=== PATIENT | female | born 1965 | race Two or more races ===

== ENCOUNTER 2023-08-06 14:38 | Emergency (ER) | payer OTHER, SELFPAY ==
[2023-08-06 14:44] VITALS: BP 137/88
--- NOTE | 2023-08-06 15:22 | ED.GENMED ---
History of Present Illness
General
Chief Complaint: Eye Problems
Source: patient
Time Seen by Provider: 08/06/23 15:13
Travel History
Have you had any contact with someone who has COVID-19?: No
Do you have any symptoms of coronavirus? Fever > 100 degrees, chills, cough, shortness of breath, sore throat, loss of taste or smell, muscle aches, or headache?: No
History of Present Illness
History of Present Illness:
57-year-old female presenting to the emergency department for evaluation of a left upper eyelid stye has been present for about 2 weeks. Patient was started on warm compresses and antibiotic ointment but has not had any relief. She notes that over
the last 5 days her stye seems to have gotten bigger. She notes some mild discomfort associated with it. Denies any visual changes or discharge from the left eye. She has no other concerns presently.
Past History
Past History
ED Past Medical History: None
ED Past Surgical History: Tonsilectomy
Social History
Tobacco: Non-smoker
Alcohol: None
Drug: None
Personal: Single
Living: alone
Employment: Employed (teacher)
Review of Systems
Review of Systems
All Other Systems: ROS reviewed and negative except as documented in HPI and ROS
Phy Exam
Physical Exam
Physical Exam:
GENERAL: Alert , in no apparent distress
EYE: conjunctiva clear, moderate to large sized stye to the left upper eyelid. Mildly tender. There is no surrounding periorbital erythema, edema or tenderness. Extraocular movements are intact. Pupils 3 mm bilateral
Head: Normocephalic atraumatic
NECK: Supple,
ENT: mmm.
LUNGS: no acute respiratory distress
NEUROLOGICAL: Alert and oriented
SKIN: Warm and dry, skin intact.
MUSCULOSKELETAL: well perfused.
PSYCH: Normal and appropriate interaction.
Scores
Heart Failure Risk
Heart Failure Risk Score: Not Applicable
Heart Score for Chest Pain Patients
STEMI patient?: Not applicable
Withdrawal Assessment of Alcohol
Withdrawal Assessment Completed?: Not applicable
Course
Vital Signs
Initial and Last Documented VS:
Initial Vital Signs
Temp Pulse Resp BP Pulse Ox
98.0 F 59 18 137/88 97
08/06/23 14:44 08/06/23 14:44 08/06/23 14:44 08/06/23 14:44 08/06/23 14:44
Last Documented Vital Signs
Temp Pulse Resp BP Pulse Ox
98.0 F 59 18 137/88 97
08/06/23 14:44 08/06/23 14:44 08/06/23 14:44 08/06/23 14:44 08/06/23 14:44
MDM/Problems Addressed
Differential Diagnosis Includes:
Stye, chalazion, conjunctivitis, cellulitis
MDM/Problems Addressed:
57-year-old female present emergency department for evaluation of the left eye stye x 2 weeks. Attempted cool compresses as well as antibiotic ointment but without any relief. Explained to patient that unfortunately unable to provide with any
further care here in the emergency department as patient will need outpatient follow-up with ophthalmology as she may need to have stye surgically removed. I advised continued warm compresses. Discussed with patient that antibiotic was unlikely to
cause any significant effect in terms of treatment of the stye. Will provide with information for close outpatient follow-up with ophthalmology
*Pulse Oximetry
Patient hypoxic: no
*Critical Care Note
Total Time (30-74mins, 75-104mins- exclusive of procedures): Not Applicable
Patient Management
Discussion with other providers: [employer]
Escalation/DeEscalation of care consider admission/obs:
I provided ophthalmology with patient's information to help expedite outpatient follow-up.
ED Attending Note
-
Portions of this chart may have been created with voice recognition software.� Occasional wrong word or��sound alike� substitutions may have occurred due to the inherent limitations of voice recognition software.
Discharge Plan
Departure
Patient Disposition: Home (Routine Discharge)
Date of Disposition: 08/06/23
Time of Disposition: 15:23
Patient with high blood pressure during this ER visit?: No
Discharge Problem:
Hordeolum internum left upper eyelid
Instructions: Stye (hordeolum)
Referrals:
Lalito Velasquez MD [Active] -
(Call for appointment
)
Interventions
Interventions:
*Risk Screen - Suicide Last Done: 08/06/23 15:31
*General Assessment Last Done: 08/06/23 14:44
*Neglect/Abuse Screening Last Done: 08/06/23 15:31
ED- Fall Risk Assessment Last Done: 08/06/23 15:32
*ED COVID-19 Vaccine History Last Done: 08/06/23 14:44
*Nursing Disposition Last Done: 08/06/23 15:38
[2023-08-06 15:30] VITALS: BMI 31.7
[2023-08-06 15:36] VITALS: BP 125/79
== END 2023-08-06 15:38 | disposition home or self-care (01) ==
LOC: EMR 14:38
PROVIDERS: EMERGENCY PHYSICIAN Emergency Medicine; FAMILY PHYSICIAN Nurse Practitioner Adult Health
DX: H00.024 Hordeolum internum left upper eyelid (principal)
CPT/HCPCS: 99282

== ENCOUNTER → 2023-08-18 16:43 | Outpatient (REF) | payer OTHER, SELFPAY | LOC: WDC 16:43 | PROVIDERS: ATTENDING PHYSICIAN Nurse Practitioner Adult Health | DX: Z12.31 Encounter for screening mammogram for malignant neoplasm of breast (principal) | CPT/HCPCS: 77063; 77067 ==

== ENCOUNTER → 2024-04-04 09:39 | Outpatient (REF) | payer OTHER, SELFPAY ==
[2024-04-04 10:28] LABS: % Basophils 0.6 % (0-2); % Eosinophils 5.6 % (0-6); % Immature Granulocytes 0.5 % (0-0.5); % Lymphocytes 39.8 % (20.5-51.1); % Monocytes 7.5 % (1.7-9.3); Absolute Eosinophils 0.4 10^3/uL (0-0.7); Absolute Lymphocytes 2.6 10^3/uL (1.2-3.4); Absolute Monocytes 0.5 10^3/uL (0.1-0.6); Hematocrit 40.1 % (37.0-47.0); Hemoglobin 12.6 g/dL (12.0-16.0); Mean Corp Hgb Conc. 31.4 g/dL (33.0-37.0); Mean Corpuscular Hgb 26.6 pg (27.0-31.0); Mean Corpuscular Volume 84.8 fL (81.0-99.0); Nucleated Red Blood Cells % 0 %; Platelet Count 349 10^3/uL (130-400); Red Blood Cell Count 4.73 10^6/uL (4.20-5.40); Red Cell Dist. Width 14.3 % (11.5-14.5); White Blood Cell Count 6.4 10^3/uL (4.8-10.8)
[2024-04-04 10:52] LABS: ALT (SGPT) < 10 U/L (0-35); AST (SGOT) 27 U/L (14-36); Albumin 4.6 g/dl (3.5-5.0); Alkaline Phosphatase 59 U/L (38-126); Blood Urea Nitrogen 12 mg/dl (7-17); Calcium 9.6 mg/dl (8.4-10.2); Carbon Dioxide 27 mmol/L (22-30); Chloride 101 mmol/L (98-107); Glucose 95 mg/dl (70-99); HDL Cholesterol 90 mg/dl; LDL Cholesterol, Calculated 92 mg/dl; Potassium 4.6 mmol/L (3.5-5.1); Sodium 141 mmol/L (135-145); Total Bilirubin 0.5 mg/dl (0.2-1.3); Total Cholesterol 195 mg/dl (50-199); Total Protein 7.2 g/dl (6.3-8.2); Triglyceride 66 mg/dl (10-149); Very Low Density Lipoprotein 13 mg/dl (0-30); eGFR > 60.00
[2024-04-04 11:04] LABS: Vitamin D, 25-OH*** 48.4 ng/mL (30-80)
[2024-04-04 11:32] LABS: Glycohemoglobin (HgbA1c) 5.4 % (4.0-5.6)
[2024-04-04 13:28] LABS: Folate 4.8 ng/ml (2.76-20); Vitamin B12 414 pg/ml (239-931)
== END ==
LOC: REG 09:39
PROVIDERS: ATTENDING PHYSICIAN Nurse Practitioner Adult Health
DX: Z00.00 Encounter for general adult medical examination without abnormal findings (principal); Z83.3 Family history of diabetes mellitus; R73.03 Prediabetes; Z13.220 Encounter for screening for lipoid disorders; E55.9 Vitamin D deficiency, unspecified; Z13.29 Encounter for screening for other suspected endocrine disorder; Z11.59 Encounter for screening for other viral diseases
CPT/HCPCS: 36415; 80053; 80061; 82306; 82607; 82746; 83036; 84443; 85025; 86803

== ENCOUNTER → 2024-09-26 13:04 | Outpatient (REF) | payer OTHER, SELFPAY | LOC: WDC 13:04 | PROVIDERS: ATTENDING PHYSICIAN Nurse Practitioner Adult Health | DX: Z12.31 Encounter for screening mammogram for malignant neoplasm of breast (principal); M81.6 Localized osteoporosis [Lequesne] | CPT/HCPCS: 77063; 77067; 77080 ==